=== PATIENT | male | born 1960 | race Caucasian/White ===

== ENCOUNTER 2024-10-31 08:29 | Outpatient (CLI) | payer MEDICARE, MEDICAID ==
[~2024-10-31 08:29] MED LIST: ALBU2.5V7 NEB; AMLO-708 PO; ARIP10TA87 PO; ARIP20TA4 PO; CLON-850 PO; CLON0.2T2 PO; COL250C PO; DIVA250T8 PO; DULO-31 PO; HALO5TAB PO; LISI20TA28 PO; TRAZ-251 PO
--- NOTE | 2024-10-31 12:05 | RADIOLOGY REPORT ---
CT Chest without intravenous contrast INDICATION: NICOTINE DEPENDENCE, CIGARETTES TECHNIQUE: Multidetector spiral CT of the chest was performed from the lung apices to the upper abdom en. Axial, coronal and sagittal multiplanar reformats were performed. Radiation dose : Chest: CTDI volume is 2 mGy. Dose-length product is 101 mGy*cm The dose indicators for CT are the volume computed tomography (CT) dose index (CTDIvol) and the dose length product (DLP), and are measured in units of mGy and mGy-cm, respectively. These indicators are not patient dose, but values generated from the CT scanner acquisition factors. The report includes radiation exposure data for exposures received during this examination. Comparison: None Findings: Lower neck: Normal thyroid. Lungs: Emphysematous changes in both lungs. Bilateral apical pleural-parenchymal scarring. Subpleural scarring and nodularity in the left upper lobe with the nodular component measuring up to 15 mm. Cur vilinear atelectasis and scarring in the lower lungs. Heart/Vascular Structures: Normal heart size. No pericardial effusion. Lymph Nodes: No adenopathy Pleura: No pleural effusion or significant pneumothorax. Musculoskeletal: No acute osseous abnormality. Soft tissues: Normal. Upper abdomen: Limited portions of the upper abdomen are unremarkable. IMPRESSION: 1. Smoking-related lung disease. Patchy scarring throughout both lungs. Nodular component in the left upper lobe measuring up to 15 mm. Lung rads 4A suspicious. Recommend follow-up chest CT in 3 months . High clinical concern consider further evaluation with PET-CT and/or CT-guided biopsy. Radiation optimization: All CT scans at this facility use at least one of these dose optimization luis antonio hniques: Automated exposure control mA and/or kV adjustment per patient size (includes targeted exams where dose is matched to clinical indication) or iterative reconstruction. HS:Y
== END 2024-10-31 23:59 | disposition home or self-care (01) ==
LOC: RAD 08:29
PROVIDERS: ATTEND Family Medicine
DX: Z12.2 Encounter for screening for malignant neoplasm of respiratory organs (principal); F17.210 Nicotine dependence, cigarettes, uncomplicated; J43.9 Emphysema, unspecified; J98.4 Other disorders of lung
CPT/HCPCS: 71271